=== PATIENT | male | born 1995 | race Caucasian/White ===

== ENCOUNTER 2018-07-29 10:13 | Emergency (ER) | payer OTHER | END 2018-07-29 12:14 | disposition home or self-care (01) | LOC: FTE 10:13 | DX: S22.31XA Fracture of one rib, right side, initial encounter for closed fracture (principal); E11.9 Type 2 diabetes mellitus without complications; W17.89XA Other fall from one level to another, initial encounter; Y92.9 Unspecified place or not applicable | CPT/HCPCS: 71100; 99283-25 ==